=== PATIENT | female | born 1965 | race Caucasian/White ===

== ENCOUNTER 2017-02-27 11:56 | Outpatient (CLI) | payer OTHER ==
--- NOTE | 2017-02-28 13:14 | Mammography Report ---
DIGITAL SCREENING MAMMOGRAM: 02/27/2017 CLINICAL INDICATION: A 51-year-old for screening. COMPARISON: 04/2014, 08/2012, 11/2010, 07/2009. TECHNIQUE: Routine CC and MLO projections were obtained of the breasts. FINDINGS: The breasts demonstrate scattered fibroglandular densities bilaterally. In the right inne r posterior breast, there is a possible developing density. Further evaluation with spot compression views and possible ultrasound is recommended. No mammographically suspicious findings are appreciat ed in the left breast. IMPRESSION: INCOMPLETE EXAMINATION. RECOMMENDATION: Additional evaluation of the right breast as above. BI-RADS category 0, incomplete. STANDARD QUALIFYING STATEMENTS 1. This examination was reviewed with the aid of Computer-Aided Detection (CAD). 2. A negative or benign imaging report should not delay biopsy if clinically suspicious findings are present. Consider surgical consultation if warranted. More than 5% of cancers are not identified by i maging. 3. Dense breasts may obscure an underlying neoplasm. JOB #: [id number] EXT JOB #:[id number]
== END 2017-02-27 11:57 | disposition home or self-care (01) ==
LOC: DI.N 11:56
PROVIDERS: ATTEND Family Medicine
DX: Z12.31 Encounter for screening mammogram for malignant neoplasm of breast (principal); R92.8 Other abnormal and inconclusive findings on diagnostic imaging of breast
CPT/HCPCS: 77067

== ENCOUNTER 2017-04-03 13:53 | Outpatient (CLI) | payer OTHER ==
--- NOTE | 2017-04-03 17:53 | Ultrasound Report ---
RIGHT BREAST ULTRASOUND: 04/03/2017 CLINICAL INDICATION: Right breast nodule. TECHNIQUE: Real-time scanning was performed with inside account representative static images obtained. Ultrasound of the inner right breast was performed. At the 2:30 position, 8 cm from the nipple, ther e is a cluster of cysts, measuring in aggregate 9 x 7 x 5 mm, accounting for the mammographic abnorma lity. No sonographically suspicious findings are identified. IMPRESSION: BENIGN FINDINGS. RECOMMENDATION: ROUTINE ANNUAL SCREENING UNLESS OTHERWISE CLINICALLY INDICATED. BIRADS CATEGORY: 2, BENIGN FINDINGS. JOB #: [id number] EXT JOB #:[id number]
--- NOTE | 2017-04-03 18:03 | Mammography Report ---
DIGITAL DIAGNOSTIC RIGHT MAMMOGRAM: 04/03/2017 CLINICAL INDICATION: Right breast density. TECHNIQUE: Right spot compression and true lateral views. COMPARISON: 02/27/2017, 04/13/2014, 08/14/2012, 11/30/2010, 07/22/2009. The right breast again demonstrates fatty replacement. The nodular density in the right inner biomedical manager ior breast persists on additional compression, measuring approximately 1 cm. No associated calcifica tions are seen. Please also refer to right breast ultrasound of the same day. IMPRESSION: BENIGN FINDINGS, WITH A CLUSTER OF CYSTS ON ULTRASOUND ACCOUNTING FOR THE MAMMOGRAPHIC A BNORMALITY. RECOMMENDATION: ROUTINE ANNUAL SCREENING UNLESS OTHERWISE CLINICALLY INDICATED. BIRADS CATEGORY: 2, BENIGN FINDINGS. STANDARD QUALIFYING STATEMENTS 1. This examination was reviewed with the aid of Computed-Aided Detection (CAD). 2. A negative or benign imaging report should not delay biopsy if clinically suspicious findings are present. Consider surgical consultation if warranted. More than 5% of cancers are not identified b y imaging. 3. Dense breasts may obscure an underlying neoplasm. JOB #: [id number] EXT JOB #:[id number]
== END 2017-04-03 13:54 | disposition home or self-care (01) ==
LOC: DI 13:53
PROVIDERS: ATTEND Family Medicine
DX: N60.11 Diffuse cystic mastopathy of right breast (principal)
CPT/HCPCS: 76642

== ENCOUNTER 2017-06-11 07:00 | Day surgery (SDC) | payer OTHER ==
[2017-06-11] MEDS ORDERED: LACTATED RINGERS 1,000 ML IV ONE (07:23)
[2017-06-11] MEDS ORDERED: MIDAZOLAM 2 MG/2 ML VIAL IVP ONE (08:28)
[2017-06-11] MEDS ORDERED: fentaNYL 100 MCG/2 ML VIAL IVP ONE (08:28)
[2017-06-11 09:30] VITALS: BP 121/66
== END 2017-06-11 07:01 | disposition home or self-care (01) ==
LOC: SDS 07:00
PROVIDERS: ATTEND Surgery
PROC: 0DJD8ZZ Inspection of Lower Intestinal Tract, Via Natural or Artificial Opening Endoscopic (ICD-10-PCS; principal; 2017-06-11 08:15)
DX: Z12.11 Encounter for screening for malignant neoplasm of colon (principal); K64.8 Other hemorrhoids; E11.9 Type 2 diabetes mellitus without complications; Z86.010 Personal history of colon polyps; E03.9 Hypothyroidism, unspecified; G47.30 Sleep apnea, unspecified; Z87.891 Personal history of nicotine dependence; E66.9 Obesity, unspecified; Z68.42 Body mass index [BMI] 45.0-49.9, adult; F32.9 Major depressive disorder, single episode, unspecified
CPT/HCPCS: 45378; J7120

== ENCOUNTER 2018-11-08 16:27 | Outpatient (CLI) | payer OTHER ==
--- NOTE | 2018-11-11 09:45 | Mammography Report ---
Reason: SCREENING MAMMOGRAM FOR BREAST CANCER Procedure Date: 11/08/2018 Accession Number: [id number] / [id number] Procedure: [facility] - Screening Mammo w/Miguel Angel CPT Code: FULL RESULT: EXAM: Screening Mammo w/Miguel Angel DATE: 11/08/2018 4:54 PM CLINICAL HISTORY: Routine screening TECHNIQUE: (B) - Bilateral CC and MLO views were obtained. COMPARISON: 04/03/2017, 02/27/2017, 04/13/2014, 08/14/2012, and 12/08/2010 PARENCHYMAL PATTERN: (A) - The breasts demonstrate scattered fibroglandular densities bilaterally. FINDINGS: No significant interval change. There are no suspicious masses, calcifications, or areas of distortion. IMPRESSION: Negative examination. BI-RADS category 1. RECOMMENDATION: (ANNUAL) - Recommend routine annual screening mammography. BI-RADS CATEGORY: (1) - Negative. STANDARD QUALIFYING STATEMENTS: 1. This examination was not reviewed with the aid of Computer-Aided Detection (CAD). 2. A negative or benign imaging report should not preclude biopsy if clinically suspicious findings are present. 3. Dense breasts may obscure an underlying neoplasm. 4. This examination was reviewed with the aid of 3D breast imaging (tomosynthesis).
== END 2018-11-08 16:28 | disposition home or self-care (01) ==
LOC: DI 16:27
PROVIDERS: ATTEND Family Medicine
DX: Z12.31 Encounter for screening mammogram for malignant neoplasm of breast (principal)
CPT/HCPCS: 77063; 77067

== ENCOUNTER 2019-05-23 11:01 | Outpatient (CLI) | payer OTHER ==
--- NOTE | 2019-05-23 13:08 | XRAY Report ---
Reason: CHEST PAIN Procedure Date: 05/23/2019 Accession Number: [id number] / [id number] Procedure: WCP - Chest 2 View X-Ray CPT Code: 45138 Final Report FULL RESULT: EXAM: CHEST RADIOGRAPHY EXAM DATE: 05/23/2019 11:01 AM. CLINICAL HISTORY: CHEST PAIN. COMPARISON: None. TECHNIQUE: 2 views. FINDINGS: Lungs/Pleura: No focal opacities evident. No pleural effusion. No pneumothorax. Normal volumes. Mediastinum: Heart and mediastinal contours are unremarkable. Other: None. IMPRESSION: Normal 2-view chest radiography. RADIA
== END 2019-05-23 11:02 | disposition home or self-care (01) ==
LOC: DI.WCP 11:01
PROVIDERS: ATTEND Family Medicine
DX: R07.9 Chest pain, unspecified (principal)
CPT/HCPCS: 71046

== ENCOUNTER 2019-09-25 13:36 | Outpatient (CLI) | payer OTHER ==
--- NOTE | 2019-09-26 10:13 | XRAY Report ---
Reason: ACUTE LOW BACK PAIN Procedure Date: 09/25/2019 Accession Number: [id number] / [id number] Procedure: WCP - Lumbar Spine 2 View CPT Code: Final Report FULL RESULT: EXAM: LUMBOSACRAL SPINE RADIOGRAPHY EXAM DATE: 09/25/2019 01:36 PM. CLINICAL HISTORY: Acute low back pain. COMPARISONS: None. TECHNIQUE: 3 views. FINDINGS: No vertebral body height collapse identified. Moderate disk space narrowing at L2-L3, with borderline grade 1 retrolisthesis. Disk space heights and alignment elsewhere appear within normal limits. No significant scoliosis. The imaged portion of the sacroiliac joints appears within normal limits. IMPRESSION: No fracture detected. Grade 1 retrolisthesis of L2 on L3, with associated disk space narrowing. RADIA
== END 2019-09-25 23:59 | disposition home or self-care (01) ==
LOC: DI.WCP 13:36
PROVIDERS: ATTEND Family Medicine
DX: M43.16 Spondylolisthesis, lumbar region (principal)
CPT/HCPCS: 72100

== ENCOUNTER 2020-05-10 11:14 | Outpatient (CLI) | payer OTHER ==
--- NOTE | 2020-05-10 12:40 | SLEEP CARE CONSULTATION ---
Information from patient questionnaire entered by Ruthann Arango. I have reviewed and concur with the information entered by Ruthann Arango. This document represents the service I personally performed and the decisions made by me, Castillo Red MD, [facility]. History of Present Illness Service Date and Time: 05/10/2020 1114 Reason for Visit: New patient, Previously diagnosed sleep apnea (severe - AHI 45.3), sleep apnea on CPAP therapy, Re-establish care (last seen 2011) Chief Complaint: reports: Excessive daytime sleepiness, Fatigue, Other (sleeping 10-12 hours a night) Date of Onset: about a year Usual bedtime: 9 pm Time it takes to fall asleep: 30-60 minutes Snores at night: Yes (without CPAA) Observed to quit breathing while asleep: Yes Number of times waking at night: some nights 6-8 times Reasons for waking at night: reports: Pain, Bathroom Toss, Turn, or Twitch while sleeping: Yes Recalls having dreams: Yes Usually gets out of bed at: 9:30 - 11 am Feels refreshed in the morning: Yes Morning headache: No Sleepy or fatigued during the day: Yes Ever fallen asleep while driving: No Takes day naps: Yes Dreams during day naps: Yes Prior sleep studies: Yes Year and Where: 2010 - [facility] Type of Sleep Study: Polysomnography Additional HPI information: I had the pleasure of seeing Ms. Mcintyre today regarding obstructive sleep apnea- hypopnea. As you know, she is a 54 year old lady who was diagnosed with severe obstructive sleep apnea-hypopnea here in 2010. The AHI was 45.3 and claudio oxygen saturation of 75%. She was prescribed a CPAP device set at 8 cmH2O. She uses every night and all night. The compliance data show usage in 180 out of the past 180 nights, averaging 13 hours a night including daytime naps. The residual AHI is 1.8 and average air leak is 7.2 L/minute. She wears a ResMed FX nasal mask. She gets his supplies from [employer]. She finds the treatment beneficial but she has been sleeping more this past year. [place] Sleepiness Scale score is 9. - Parasomnia Symptoms Ever been unable to move upon waking from sleep: No Ever felt weak in the knees when startled or emotional: No Bothered by creepy, crawly, restless sensations in legs: No Problems with memory or concentration: No CPAP Compliance Data - Data Reviewed with Patient Average duration of nightly device use: 13 hr 1 min Compliance rate %: 100 (180 days) Current pressure setting (cmH2O): 8 Humidity settin Average residual AHI: 1.8 Subjective Initial [place] Sleepiness Scale score: 15 (in 2011) Current [place] Sleepiness Scale score: 9 Past Medical History Past Medical History: reports: Hypertension, Claustrophobia, Diabetes, Hypothyroidism, Anemia, Anxiety, Asthma, Depression, GERD, Attention deficit Social History The patient's occupation is a CAREGIVER. Patient is Single and lives in [place]. Have you smoked in the past 12 months: No Cigarettes per day (20/pack): 20 Years of smokin Quit date: 1987 Smoking Pack Years: 5.0 Alcohol use: No Caffeine use: Yes Caffeine amount and frequency: 1 cup daily Family History Family history of sleep disordered breathing: Yes (mother) Allergies and Home Medications Drug allergies reviewed: Yes Home medication list reviewed: Yes Review of Systems Weight gain over past 5 years: 15 Weight loss over past 5 years: 20 Cardiovascular: reports: high blood pressure, palpitations, irregular heart rate or pulse, leg or foot swelling Respiratory: reports: shortness of breath, wheeze, sputum production Gastrointestinal: reports: heartburn Urinary: reports: urgency Neurological: denies: headaches, seizure, head trauma, disorientation, speech dysfunction, gait or balance problems, fainting or unconsciousness, other Psychiatric: reports: Attention Deficit Hyperactivity, anxiety, depression, claustrophobia Ear/Nose/Throat: reports: nasal congestion, dry mouth/throat Endocrine: reports: thyroid disease, sluggishness, too hot or cold, excessive thirst Musculoskeletal: denies: joint pain, neck pain, back pain, joint swelling, muscle pain or cramping, mobility problems, other Immunologic: reports: allergies to food or environment (adhesives) Physical Exam Vital signs obtained and entered by: To minimize the risk of COVID-19 exposure, detailed exam was not performed. Height: 5 ft 7 in Weight: 303 lb Weight change since last visit: -4 Body Mass Index: 47.4 BMI Classification: Morbidly Obese Impression and Plan IMPRESSION: 1. Obstructive Sleep Apnea-Hypopnea Syndrome, severe, as previously diagnosed 9 years ago. The patient has had good treatment compliance. The current pressure setting appears effective and comfortable. The patient experiences improvement on the treatment but is sleeping 13 hours a day. The compliance/efficacy report suggests that the treatment is effective. The patient has no gained significant amount of weight. I recommend repeating the manual CPAP/BiPAP titration study to make sure that the treatment is effective and there is no other sleep disrupting conditions. Plan: 1. Schedule manual CPAP titration study. COVID test will be required within 72 hours prior to the study. 2. Avoid long distance driving or when feeling sleepy. 3. Avoid alcohol, sedative and muscle relaxant around bedtime. 4. Attempt to lose weight. 5. Return for a follow up after the sleep study. Visit Type: In Office Time Spent with Patient (minutes): 15 Provider Statement: I spent 100% of the Face to Face Visit with the patient with greater than 50% spent counseling the patient and coordination of care.
== END 2020-05-10 11:15 | disposition home or self-care (01) ==
LOC: SC 11:14
PROVIDERS: ATTEND Internal Medicine Pulmonary Disease
DX: G47.33 Obstructive sleep apnea (adult) (pediatric) (principal); E66.01 Morbid (severe) obesity due to excess calories; Z68.42 Body mass index [BMI] 45.0-49.9, adult
CPT/HCPCS: 99203; 99212

== ENCOUNTER 2020-08-12 13:58 | Outpatient (CLI) | payer OTHER ==
--- NOTE | 2020-08-12 17:13 | XRAY Report ---
PROCEDURE: Knee 4 View RT INDICATIONS: KNEE PAIN,RIGHT TECHNIQUE: 4 views of the right knee(s) were acquired. COMPARISON: None. FINDINGS: Bones: No acute fractures or dislocations. Tiny ossific density projects over the anterolateral aspe ct of the right knee joint. No suspicious bony lesions. Mild degenerative changes of the right knee . Soft tissues: There is a small suprapatellar joint effusion. No suspicious soft tissue calcification s. IMPRESSION: 1. Right knee without acute fracture or dislocation. 2. Tiny ossific density projecting over the anterolateral aspect of the right knee joint with suprapa tellar joint effusion. If there is persistent clinical concern for internal soft tissue derangement g iven mechanism of injury, consider further evaluation with MRI. 3. Mild tricompartmental degenerative changes of the right knee. Reviewed by: Kirk Kirk MD on 08/12/2020 5:11 PM PDT Approved by: Kirk Kirk MD on 08/12/2020 5:11 PM PDT Station ID: [id number]
== END 2020-08-12 13:59 | disposition home or self-care (01) ==
LOC: DI 13:58
PROVIDERS: ATTEND Family Medicine
DX: M25.561 Pain in right knee (principal); M17.11 Unilateral primary osteoarthritis, right knee; M25.461 Effusion, right knee

== ENCOUNTER 2020-09-23 14:04 | Outpatient (CLI) | payer OTHER ==
--- NOTE | 2020-09-23 15:23 | XRAY Report ---
PROCEDURE: Knee 4 View RT INDICATIONS: DJD RIGHT KNEE TECHNIQUE: 4 views of the right knee(s) were acquired. COMPARISON: X-ray knee 08/12/2020 FINDINGS: Bones: No fractures or dislocations. No suspicious bony lesions. Punctate calcification is noted o verlying the joint space at the level of the tibial spine. It is unchanged on current exam. There is mild medial and patellofemoral compartment narrowing. Soft tissues: Mild joint effusion. No suspicious soft tissue calcifications. IMPRESSION: 1. Stable interval exam demonstrating medial and patellofemoral compartment narrowing. 2. Ossification overlying the tibial spine may represent a loose body. If this is of concern, MRI kne e is recommended. Reviewed by: Khadra Aguilera MD on 09/23/2020 3:21 PM PDT Approved by: Khadra Aguilera MD on 09/23/2020 3:21 PM PDT Station ID: [id number]
== END 2020-09-23 23:59 | disposition home or self-care (01) ==
LOC: DI.N 14:04
PROVIDERS: ATTEND Physician Assistant
DX: M17.11 Unilateral primary osteoarthritis, right knee (principal); M25.861 Other specified joint disorders, right knee

== ENCOUNTER 2022-05-10 10:57 | Outpatient (CLI) | payer OTHER ==
[2022-05-10 11:12] LABS: BASOPHILS % (AUTO) 0.3 %; EOSINOPHILS # (AUTO) 0.3 10^3/uL (0.0-0.7); EOSINOPHILS % (AUTO) 3.7 %; HCT - HEMATOCRIT 38.6 % (37.0-47.0); HGB - HEMOGLOBIN 12.3 g/dL (12.0-16.0); LYMPHOCYTES # (AUTO) 2.1 10^3/uL (1.5-3.5); LYMPHOCYTES % (AUTO) 29.1 %; MEAN CORPUSCULAR HEMOGLOBIN 26.5 pg (27.0-31.0); MEAN CORPUSCULAR HGB CONC 31.9 g/dL (32.0-36.0); MEAN CORPUSCULAR VOLUME 83.2 fL (81.0-99.0); MEAN PLATELET VOLUME 8.6 fL (7.9-10.8); MONOCYTES # (AUTO) 0.6 10^3/uL (0.0-1.0); MONOCYTES % (AUTO) 8.1 %; NEUTROPHILS # (AUTO) 4.2 10^3/uL (1.5-6.6); NEUTROPHILS % (AUTO) 58.2 %; PLT - PLATELET COUNT 268 10^3/uL (130-450); RED BLOOD COUNT 4.64 10^6/uL (4.20-5.40); RED CELL DISTRIBUTION WIDTH 14.1 % (12.0-15.0); WHITE BLOOD COUNT 7.2 x10^3/uL (4.8-10.8)
[2022-05-10 11:21] LABS: CREATININE,URINE 130.1 mg/dL; MICROALBUM/CREATININE RATIO,UR 10.8 ug/mg (<30.0); MICROALBUMIN,URINE 1.4 mg/dL (0-300.0)
[2022-05-10 11:32] LABS: ALBUMIN 4.1 g/dL (3.2-5.5); ALBUMIN/GLOBULIN RATIO 1.2 (1.0-2.2); ALKALINE PHOSPHATASE 74 IU/L (42-121); ALT ALANINE AMINOTRANSFERASE 19 IU/L (10-60); AST ASPARTATE AMINOTRANSFERASE 14 IU/L (10-42); BILIRUBIN,TOTAL 0.8 mg/dL (0.2-1.0); BUN - BLOOD UREA NITROGEN 12 mg/dL (6-20); CALCIUM 9.8 mg/dL (8.5-10.3); CARBON DIOXIDE - CO2 30 mmol/L (21-32); CHLORIDE 100 mmol/L (101-111); CHOL/HDL RATIO 5.8 (<4.4); CHOLESTEROL 220 mg/dL; CREATININE 0.9 mg/dL (0.4-1.0); GFR - MDRD 65 (>89); GLUCOSE 193 mg/dL (70-100); HDL CHOLESTEROL 38 mg/dL; LDL CHOLESTEROL,CALCULATED 144 mg/dL; LDL/HDL RATIO 3.8 (<4.4); POTASSIUM 4.4 mmol/L (3.5-5.0); SODIUM 136 mmol/L (135-145); TOTAL PROTEIN 7.5 g/dL (6.7-8.2); TRIGLYCERIDES 189 mg/dL; VLDL CHOLESTEROL 38 mg/dL
[2022-05-10 11:42] LABS: THYROID STIMULATING HORMONE 2.65 uIU/mL (0.34-5.60)
[2022-05-10 13:34] LABS: ESTIMATED AVERAGE GLUCOSE 189 mg/dL (70-100); HEMOGLOBIN A1c% 8.2 % (4.27-6.07)
== END 2022-05-10 10:58 | disposition home or self-care (01) ==
LOC: LAB 10:57
PROVIDERS: ATTEND Physician Assistant
DX: E11.8 Type 2 diabetes mellitus with unspecified complications (principal); E78.5 Hyperlipidemia, unspecified; E03.9 Hypothyroidism, unspecified
CPT/HCPCS: 36415; 80053; 80061; 82043; 82570; 83036; 83721; 84443; 85025

== ENCOUNTER 2022-05-31 11:27 | Outpatient (CLI) | payer OTHER ==
--- NOTE | 2022-06-01 12:17 | Mammography Report ---
BILATERAL DIGITAL SCREENING MAMMOGRAM 3D/2D: 05/31/2022 CLINICAL: Routine screening. Comparison is made to exams dated: 11/08/2018 mammogram, 04/03/2017 ultrasound, 04/03/2017 mammogram, 02/27/2017 mammogram, 04/13/2014 mammogram, and 08/14/2012 ultrasound - [facility]. There are scattered areas of fibroglandular density in both breasts (category b / 25%-50% glandular t issue). There is a focal asymmetry in the right breast at 5 o'clock posterior depth. No other significant masses, calcifications, or other findings are seen in either breast. IMPRESSION: INCOMPLETE: NEEDS ADDITIONAL IMAGING EVALUATION The focal asymmetry in the right breast is indeterminate. Additional views with possible ultrasound are recommended. Based on the Tyrer Cuzick model (a risk assessment model) the patients lifetime risk is 3.0% and her 10 year risk is 1.0%. According to the ACR, ACS, and NCCN guidelines, an annual breast MRI exam kiarra g with mammogram is recommended if the patients lifetime risk is 20% or greater. This exam was interpreted at Station ID: [id number]. NOTE: For mammograms, a report in lay terms will be sent to the patient. Approximately 15% of breast malignancies will not be visualized mammographically. In the management of a palpable breast mass, a negative mammogram must not discourage biopsy of a clinically suspicious lesion. Electronically Signed By: Adali case/gabby:05/31/2022 15:56:07 ACR BI-RADS Category 0: Incomplete 3340F PARENCHYMAL PATTERN: (A) - The breast(s) demonstrate(s) scattered fibroglandular densities. BI-RADS CATEGORY: (0) - 0 Mammo and [place] [id number] Immediate follow-up LATERALITY: (B)
== END 2022-05-31 11:28 | disposition home or self-care (01) ==
LOC: DI.N 11:27
DX: Z12.31 Encounter for screening mammogram for malignant neoplasm of breast (principal); R92.8 Other abnormal and inconclusive findings on diagnostic imaging of breast

== ENCOUNTER 2022-06-15 10:40 | Outpatient (CLI) | payer OTHER ==
--- NOTE | 2022-06-16 13:10 | Mammography Report ---
UNILATERAL RIGHT DIGITAL DIAGNOSTIC MAMMOGRAM 3D/2D WITH SPOT COMPRESSION: 06/15/2022 CLINICAL: Patient returns today to evaluate a focal asymmetry in the right breast. Comparison is made to exams dated: 05/31/2022 mammogram, 11/08/2018 mammogram, 04/03/2017 mammogram, 1 mammogram, 04/13/2014 mammogram, and 08/14/2012 mammogram - [facility]. There are scattered areas of fibroglandular density in the right breast (category b / 25%-50% glandul ar tissue). There is an oval low density focal asymmetry with an obscured and circumscribed margin in the right b reast at 6 o'clock posterior depth. This is confirmed with additional views. No other significant masses or calcifications are seen in the breast. IMPRESSION: INCOMPLETE: NEEDS ADDITIONAL IMAGING EVALUATION The oval low density focal asymmetry in the right breast resembles a lymph node but remains indeterm inate. An ultrasound is recommended. This was performed immediately following this exam. Based on the Tyrer Cuzick model (a risk assessment model) the patients lifetime risk is 3.0% and her 10 year risk is 1.0%. According to the ACR, ACS, and NCCN guidelines, an annual breast MRI exam kiarra g with mammogram is recommended if the patients lifetime risk is 20% or greater. This exam was interpreted at Station ID: [id number]. NOTE: For mammograms, a report in lay terms will be sent to the patient. Approximately 15% of breast malignancies will not be visualized mammographically. In the management of a palpable breast mass, a negative mammogram must not discourage biopsy of a clinically suspicious lesion. Electronically Signed By: Cora swanson/:06/15/2022 12:54:16 ACR BI-RADS Category 0: Incomplete 3340F PARENCHYMAL PATTERN: (A) - The breast(s) demonstrate(s) scattered fibroglandular densities. BI-RADS CATEGORY: (0) - 0 Ultrasound [id number] Immediate follow-up LATERALITY: (B)
--- NOTE | 2022-06-16 13:10 | Ultrasound Report ---
LIMITED ULTRASOUND OF RIGHT BREAST: 06/15/2022 CLINICAL: Patient returns today to evaluate a focal asymmetry in the right breast. Comparison is made to exams dated: 06/15/2022 mammogram, 05/31/2022 mammogram, 11/08/2018 mammogram, mammogram, 02/27/2017 mammogram, and 04/13/2014 mammogram - [facility]. Color flow ultrasound of the right breast 6 o'clock region was performed. Arredondo scale images of the r eal-time examination were reviewed. There is a 1 cm x 1.2 cm x 0.4 cm lymph node with a circumscribed margin in the right breast at 6 o'c lock middle depth 5 cm from the nipple. This lymph node is hypoechoic with fatty hilum and posterior acoustic enhancement. This correlates with mammography findings. Color flow imaging demonstrates t hat there is no vascularity present. IMPRESSION: BENIGN The 1.2 cm lymph node in the right breast correlates well with the mammographic finding and is benign . Return to annual mammogram screening schedule is recommended. Findings and recommendations were conveyed to the patient at time of exam. This exam was interpreted at Station ID: [id number]. Electronically Signed By: Cora swanson/:06/16/2022 12:51:41 Entry: - 06/16/2022 12:51:41 Ultrasound BI-RADS: 2 Benign BI-RADS CATEGORY: (2) - 2 Mammogram [id number] return to screening LATERALITY: (B)
== END 2022-06-15 10:41 | disposition home or self-care (01) ==
LOC: DI 10:40
PROVIDERS: ATTEND Physician Assistant
DX: R92.8 Other abnormal and inconclusive findings on diagnostic imaging of breast (principal)

== ENCOUNTER 2023-01-13 08:00 | Outpatient (CLI) | payer OTHER | END 2023-01-13 23:59 | disposition home or self-care (01) | LOC: LAB.N 08:00 | PROVIDERS: ATTEND Physician Assistant Medical | DX: N30.00 Acute cystitis without hematuria (principal) | CPT/HCPCS: 87077; 87086; 87181 ==

== ENCOUNTER 2023-01-26 10:37 | Outpatient (CLI) | payer OTHER ==
--- NOTE | 2023-01-26 11:08 | Sleep Patient Instructions ---
Sleep Center Visit Summary - Patient Visit Information Reason for Visit: Annual visit for PAP therapy - Patient Instructions Additional Instructions: You will continue with CPAP therapy with pressure set at 8 cmH2O. A supply prescription will be updated with your DME. I added to update your CPAP, please call office to schedule followup once you get your new device. We encourage you to continue to try to lose weight. Please follow up with the sleep care office a month after obtaining new CPAP. - Clinic Information Contact: [facility] [address] [place] [address] [email or web address] T: [phone]
--- NOTE | 2023-01-26 11:12 | SLEEP CARE CONSULTATION ---
Information from patient questionnaire entered by Jamaal Armstrong. I have reviewed and concur with the information entered by Jamaal Armstrong. This document represents the service I personally performed and the decisions made by me, Yvrose De Santiago ARNP. History of Present Illness Service Date and Time: 01/26/2023 1037 Previous diagnosis: Severe, Obstructive Sleep Apnea-Hypopnea Syndrome AHI: 45.3 (in 2010) Reason for follow up: annual (LAST SEEN ) Equipment type: CPAP (RESMED 10, s/u 04/2016; SD CARD NEEDED) Equipment obtained from: [employer] ([employer]) Mask style: Nasal Mask brand: Respironics (Wisp for her) Backup mask available: Yes (other mask) Last cushion change: 1 month Prior sleep studies: Yes Year and Where: 2010 - [facility] Type of Sleep Study: Polysomnography HPI additional information: SLOANE WANG was diagnosed to have severe, AHI 45.3, obstructive sleep apnea- hypopnea syndrome and returned today for CPAP therapy annual follow-up. Sleep Study - Results Type of Sleep Study: Polysomnography Prior sleep studies: Yes Year and Where: 2010 - [facility] CPAP Compliance Data - Data Reviewed with Patient Average duration of nightly device use: 9 hours 48 minutes Compliance rate %: 100 (180/180 days used) Current pressure setting (cmH2O): 8 Average residual AHI: 3 Central apnea: 0 Obstructive apnea: 2.4 Hypopnea: 0.5 Average large leak: 13.2 L/min Subjective Patient concerns: reports: condensation in mask/hose, nasal congestion (had covid last week), dry mouth, nose, throat (occasional with possible oral venting), other (headache). denies: aerophagia, mask discomfort, air blowing in eyes, mask leak noise, epistaxis Observed to snore while using device: No Current pressure setting perceived as: comfortable On therapy, patient: reports: sleeping better, awakening more refreshed, being more awake and alert during the day, more rested overall. denies: drowsiness while driving Initial [place] Sleepiness Scale score: 15 (in 2010) Current [place] Sleepiness Scale score: 9 (01/26/23) Allergies and Home Medications Known drug allergies: Yes (as listed) Drug allergies reviewed: Yes Home medication list reviewed: Yes (no changes) Allergy and home medication list: Allergies adhesive Allergy (Severe, Verified 01/25/23 09:04) Hives Pt. states gets blisters from any type of tape except that Tegaderm is OK. Paper tape OK as well. simvastatin Adverse Reaction (Severe, Verified 01/25/23 09:04) Muscle cramps Review of Systems Review of systems same as previous: Yes (no changes) Physical Exam Vital signs obtained and entered by: JAMAAL Subramanian MA Blood Pressure: 128/70 (LEFT ARM) Cuff size: regular Heart Rate: 74 O2 Saturation: 98 Height: 5 ft 7 in Weight: 313 lb 3.2 oz Body Mass Index: 49.0 BMI Classification: Morbidly Obese Impression and Plan 1. Obstructive Sleep Apnea-Hypopnea Syndrome, severe, with good treatment compliance and good apnea control. On CPAP therapy, the patient has better sleep quality and is more rested overall. Her CPAP was last updated in 2016. The patients CPAP is over 5 years old and of reasonable use. In addition, it is giving her an error message that the motor has exceeded its life. Thus, the CPAP will be updated. The new CPAPs also have a better humidity system which could assist control of patients dryness symptoms. A DWO prescription will be made. Compliance guidelines for new device and follow up discussed. Patient's apnea severity and rationale for treatment to reduce apnea, improve sleep quality and reduce cardiovascular and cerebrovascular events was reviewed. I also reviewed the benefit of consistent device use of CPAP for hypertension, diabetes, gastric reflux, depression/anxiety, migraines and attention deficit. 2. Obesity, unspecified. Currently patients BMI is 49. Obesity increases the risk of apnea, CPAP pressure requirements and overall health risks especially cardiovascular and diabetes. Thus patient is advised to lose weight. * Continue CPAP pressure at 8 cmH2O * Update machine * Update supplies * Notify me if snoring with mask or feeling that the pressure is too much or too little * Attempt to lose weight * Call this office if any problems using CPAP * Return for follow up one month after obtaining new device, or sooner if concerns arise Counseling Topics: Spare mask, Weight loss health impact Prescriptions: Auto CPAP, Device supplies Plan: Update machine and supplies Visit Type: In Office Time Spent with Patient (minutes): 23 Provider Statement: I spent 100% of the Face to Face Visit with the patient with greater than 50% spent counseling the patient and coordination of care.
[2023-01-26 11:15] VITALS: BP 128/70; O2SAT 98
== END 2023-01-26 10:38 | disposition home or self-care (01) ==
LOC: SC 10:37
PROVIDERS: ATTEND Nurse Practitioner Family
DX: G47.33 Obstructive sleep apnea (adult) (pediatric) (principal); E66.01 Morbid (severe) obesity due to excess calories; Z68.42 Body mass index [BMI] 45.0-49.9, adult; E88.01 Alpha-1-antitrypsin deficiency; E11.8 Type 2 diabetes mellitus with unspecified complications
CPT/HCPCS: 36415; 80053; 80061; 81599; 82103; 82104; 83036; 83721; 84443; 85025; 99212; 99213

== ENCOUNTER 2023-01-26 11:19 | Outpatient (CLI) | payer OTHER ==
[2023-01-26 17:56] LABS: BASOPHILS % (AUTO) 0.7 %; EOSINOPHILS # (AUTO) 0.1 10^3/uL (0.0-0.7); EOSINOPHILS % (AUTO) 2.2 %; HCT - HEMATOCRIT 37.3 % (37.0-47.0); HGB - HEMOGLOBIN 11.3 g/dL (12.0-16.0); LYMPHOCYTES # (AUTO) 1.6 10^3/uL (1.5-3.5); LYMPHOCYTES % (AUTO) 34.6 %; MEAN CORPUSCULAR HEMOGLOBIN 24.5 pg (27.0-31.0); MEAN CORPUSCULAR HGB CONC 30.3 g/dL (32.0-36.0); MEAN CORPUSCULAR VOLUME 80.7 fL (81.0-99.0); MEAN PLATELET VOLUME 9.2 fL (7.9-10.8); MONOCYTES # (AUTO) 0.3 10^3/uL (0.0-1.0); MONOCYTES % (AUTO) 5.9 %; NEUTROPHILS # (AUTO) 2.6 10^3/uL (1.5-6.6); NEUTROPHILS % (AUTO) 55.9 %; PLT - PLATELET COUNT 317 10^3/uL (130-450); RED BLOOD COUNT 4.62 10^6/uL (4.20-5.40); RED CELL DISTRIBUTION WIDTH 14.3 % (12.0-15.0); WHITE BLOOD COUNT 4.6 x10^3/uL (4.8-10.8)
[2023-01-26 18:48] LABS: ALBUMIN 4.1 g/dL (3.2-5.5); ALBUMIN/GLOBULIN RATIO 1.6 (1.0-2.2); ALKALINE PHOSPHATASE 53 IU/L (42-121); ALT ALANINE AMINOTRANSFERASE 37 IU/L (10-60); AST ASPARTATE AMINOTRANSFERASE 32 IU/L (10-42); BILIRUBIN,TOTAL 0.4 mg/dL (0.2-1.0); BUN - BLOOD UREA NITROGEN 9 mg/dL (6-20); CARBON DIOXIDE - CO2 26 mmol/L (21-32); CHLORIDE 107 mmol/L (101-111); CHOL/HDL RATIO 4.5 (<4.4); CHOLESTEROL 166 mg/dL; CREATININE 0.9 mg/dL (0.6-1.3); GFR - MDRD 65 (>89); GLUCOSE 141 mg/dL (74-104); HDL CHOLESTEROL 37 mg/dL; LDL CHOLESTEROL,CALCULATED 95 mg/dL; LDL/HDL RATIO 2.6 (<4.4); POTASSIUM 4.2 mmol/L (3.5-4.5); SODIUM 141 mmol/L (135-145); TOTAL PROTEIN 6.6 g/dL (6.4-8.9); TRIGLYCERIDES 172 mg/dL (48-352); VLDL CHOLESTEROL 34 mg/dL
[2023-01-26 19:11] LABS: THYROID STIMULATING HORMONE 0.86 uIU/mL (0.34-5.60)
[2023-01-26 21:30] LABS: ESTIMATED AVERAGE GLUCOSE 180 mg/dL (70-100); HEMOGLOBIN A1c% 7.9 % (4.27-6.07)
== END 2023-01-26 11:20 | disposition home or self-care (01) ==
LOC: LAB.N 11:19
PROVIDERS: ATTEND Physician Assistant
DX: E88.01 Alpha-1-antitrypsin deficiency (principal); E11.8 Type 2 diabetes mellitus with unspecified complications
CPT/HCPCS: 36415; 80053; 80061; 81599; 83036; 83721; 84443; 85025

== ENCOUNTER 2023-02-22 14:46 | Outpatient (CLI) | payer OTHER ==
--- NOTE | 2023-02-22 16:11 | XRAY Report ---
PROCEDURE: Chest 2 View X-Ray INDICATIONS: ACUTE COUGH TECHNIQUE: 2 views of the chest were acquired. COMPARISON: None. FINDINGS: Surgical changes and devices: None. Lungs and pleura: No pleural effusions or pneumothorax. Lungs are clear. Mediastinum: Mediastinal contours appear normal. Heart size is normal. Bones and chest wall: No suspicious bony lesions. Overlying soft tissues appear unremarkable. IMPRESSION: No acute cardiopulmonary process. Reviewed by: Sher Mac on 02/22/2023 4:10 PM PDT Approved by: Sher Mac on 02/22/2023 4:10 PM PDT Station ID: [id number]
== END 2023-02-22 14:47 | disposition home or self-care (01) ==
LOC: DI 14:46
PROVIDERS: ATTEND Specialist
DX: R05.1 Acute cough (principal)

== ENCOUNTER 2023-03-27 09:30 | Outpatient (CLI) | payer OTHER ==
--- NOTE | 2023-03-27 10:02 | Sleep Patient Instructions ---
Sleep Center Visit Summary - Patient Visit Information Reason for Visit: First compliance visit with CPAP - Patient Instructions Additional Instructions: You were here for follow up of CPAP therapy. You will be continued on CPAP therapy with pressure at 8 cmH2O. You should follow up with sleep care in 12 months. You may contact us sooner for any questions or concerns. - Clinic Information Contact: [facility] [address] [place] [phone] [email or web address] T: [phone]
--- NOTE | 2023-03-27 10:05 | SLEEP CARE CONSULTATION ---
Information from patient questionnaire entered by Teagan Armstrong. I have reviewed and concur with the information entered by Teagan Armstrong. This document represents the service I personally performed and the decisions made by me, Yvrose De Santiago ARNP. History of Present Illness Service Date and Time: 03/27/2023 0930 Previous diagnosis: Severe, Obstructive Sleep Apnea-Hypopnea Syndrome AHI: 45.3 (in 2010) Reason for follow up: first compliance after device update Equipment type: CPAP (ResMed Airsense 10, s/u 01/2023, SD NEEDED) Equipment obtained from: [facility]) Mask style: Nasal Mask brand: Resmed Backup mask available: Yes Last cushion change: 1 month [facility] Type of [facility] Study: Polysomnography HPI additional information: SLOANE WANG was diagnosed to have severe, AHI 45.3, obstructive sleep apnea- hypopnea syndrome and returned today for CPAP therapy first compliance after updating device follow-up. Sleep Study - Results Type of Sleep Study: Polysomnography Prior sleep [facility]: Yes [facility] CPAP Compliance Data - Data Reviewed with Patient Average duration of nightly device use: 9 hours 18 minutes Compliance rate %: 100 (44/44 days used) Current pressure setting (cmH2O): 8 Average residual AHI: 2.8 Central apnea: 0 Obstructive apnea: 2.3 Hypopnea: 0.5 Subjective Patient concerns: reports: dry mouth, nose, throat (little bit). denies: aerophagia, mask discomfort, air blowing in eyes, mask leak noise, condensation in mask/hose, nasal congestion, epistaxis Observed to snore while using device: No Current pressure setting perceived as: comfortable On therapy, patient: reports: sleeping better, awakening more refreshed, being more awake and alert during the day, more rested overall. denies: drowsiness while driving Initial [place] Sleepiness Scale score: 15 (in 2010) Current [place] Sleepiness Scale score: 4 Allergies and Home Medications Known drug allergies: Yes (as listed) Drug allergies reviewed: Yes Home medication list reviewed: Yes (Humalog, Tojeo) Allergy and home medication list: Allergies adhesive Allergy (Severe, Verified 03/26/23 09:05) Hives Pt. states gets blisters from any type of tape except that Tegaderm is OK. Paper tape OK as well. simvastatin Adverse Reaction (Severe, Verified 03/26/23 09:05) Muscle cramps Review of Systems Review of systems same as previous: Yes (no changes) Physical Exam Vital signs obtained and entered by: YVROSE ORTIZ Blood Pressure: 128/72 Cuff size: wrist (right) Heart Rate: 65 O2 Saturation: 96 Height: 5 ft 7 in Weight: 308 lb 12.8 oz Body Mass Index: 48.3 BMI Classification: Morbidly Obese Impression and Plan 1. Obstructive Sleep Apnea-Hypopnea Syndrome, severe, with good treatment compliance and good apnea control. On CPAP therapy, the patient has better sleep quality and is more rested overall. Patient has significant improvement of their sleep apnea and is satisfied with current CPAP therapy. She has had a little bit of dry mouth but says its not all the time. Patient's apnea severity and rationale for treatment to reduce apnea, improve sleep quality and reduce cardiovascular and cerebrovascular events was reviewed. I also reviewed the benefit of consistent device use of CPAP for hypertension, diabetes, gastric reflux, depression/anxiety, migraines and attention deficit. 2. Obesity, unspecified. Currently patients BMI is 48.3. Obesity increases the risk of apnea, CPAP pressure requirements and overall health risks especially cardiovascular and diabetes. Thus patient is advised to lose weight. * Continue CPAP pressure at 8 cmH2O * Notify me if snoring with mask or feeling that the pressure is too much or too little * Attempt to lose weight * Call this office if any problems using CPAP * Return for follow up in 1 year, or sooner if concerns arise Counseling Topics: Weight loss health impact Follow up with Sleep Care in: 1 year Visit Type: In Office Time Spent with Patient (minutes): 14 Provider Statement: I spent 100% of the Face to Face Visit with the patient with greater than 50% spent counseling the patient and coordination of care.
[2023-03-27 10:11] VITALS: BP 128/72; O2SAT 96
== END 2023-03-27 09:31 | disposition home or self-care (01) ==
LOC: SC 09:30
PROVIDERS: ATTEND Nurse Practitioner Family
DX: G47.33 Obstructive sleep apnea (adult) (pediatric) (principal); E66.01 Morbid (severe) obesity due to excess calories; Z68.42 Body mass index [BMI] 45.0-49.9, adult
CPT/HCPCS: 99212

== ENCOUNTER 2023-05-12 08:00 | Outpatient (CLI) | payer OTHER | END 2023-05-12 23:59 | disposition home or self-care (01) | LOC: LAB.N 08:00 | PROVIDERS: ATTEND Registered Nurse | DX: R07.0 Pain in throat (principal) | CPT/HCPCS: 87070 ==

== ENCOUNTER 2023-06-28 13:59 | Outpatient (CLI) | payer OTHER ==
--- NOTE | 2023-06-28 14:23 | XRAY Report ---
PROCEDURE: Chest 2V INDICATIONS: DYSPNEA/COUGH TECHNIQUE: 2 views of the chest were acquired. COMPARISON: Chest x-ray 02/22/2023. FINDINGS: Surgical changes and devices: None. Lungs and pleura: No pleural effusions or pneumothorax. Lungs are clear. Mediastinum: Mediastinal contours appear normal. Heart size is normal. Bones and chest wall: No suspicious bony lesions. Overlying soft tissues appear unremarkable. IMPRESSION: No acute cardiopulmonary process. Reviewed by: Nba Sosa MD on 06/28/2023 2:22 PM PST Approved by: Nba Sosa MD on 06/28/2023 2:22 PM PST Station ID: [id number]
== END 2023-06-28 14:00 | disposition home or self-care (01) ==
LOC: DI 13:59
PROVIDERS: ATTEND Internal Medicine Cardiovascular Disease
DX: I44.7 Left bundle-branch block, unspecified (principal); E78.49 Other hyperlipidemia; I10 Essential (primary) hypertension; I42.1 Obstructive hypertrophic cardiomyopathy

== ENCOUNTER 2023-07-03 08:00 | Outpatient (CLI) | payer OTHER ==
[2023-07-03 18:36] LABS: BILIRUBIN,URINE NEGATIVE (NEGATIVE); GLUCOSE, URINE (UA) NEGATIVE (NEGATIVE); KETONES,URINE (UA) NEGATIVE (NEGATIVE); LEUKOCYTE ESTERASE, URINE MODERATE (NEGATIVE); NITRITE,URINE NEGATIVE (NEGATIVE); OCCULT BLOOD,URINE LARGE (NEGATIVE); PROTEIN,URINE 30 mg/dL (NEGATIVE); UROBILINOGEN,URINE 0.2 (NORMAL) E.U./dL (NORMAL)
[2023-07-03 18:41] LABS: CLARITY,URINE HAZY (CLEAR)
[2023-07-03 18:48] LABS: WBC,URINE >25 /HPF (0-5)
[2023-07-03 18:49] LABS: BACTERIA,URINE Few /HPF (None Seen); SQUAMOUS EPITHELIAL CELL,UR FEW Squamous (<= Few)
== END 2023-07-03 23:59 | disposition home or self-care (01) ==
LOC: LAB.N 08:00
PROVIDERS: ATTEND Physician Assistant
DX: N30.00 Acute cystitis without hematuria (principal)
CPT/HCPCS: 81001; 87077; 87086; 87181